=== PATIENT | female | born 1955 | race Two or more races ===

== ENCOUNTER 2022-08-05 13:03 | Outpatient (REF) | payer BC, SELFPAY ==
[2022-08-05 13:33] LABS: COVID-19 Test Negative (Negative); IDNOW Serial# 16C4AD1C
== END 2022-08-05 13:04 | disposition home or self-care (01) ==
LOC: HO.LAB 13:03
PROVIDERS: Visit Provider Internal Medicine
DX: Z20.822 Contact with and (suspected) exposure to COVID-19 (principal)
CPT/HCPCS: 87635; C9803